=== PATIENT | male | born 1980 | race Caucasian/White ===

== ENCOUNTER 2020-11-25 14:04 | Emergency (ER) | payer OTHER ==
[2020-11-25] MEDS ORDERED: ZOLOFT50 MG PO (14:22)
== END 2020-11-25 14:41 | disposition home or self-care (01) ==
LOC: ER1 14:04
DX: F32.9 Major depressive disorder, single episode, unspecified (principal); Z76.0 Encounter for issue of repeat prescription; F17.210 Nicotine dependence, cigarettes, uncomplicated
CPT/HCPCS: 99281

== ENCOUNTER 2021-02-20 21:12 | Emergency (ER) | payer OTHER ==
[~2021-02-20 21:12] MED LIST: ZOLOFT50 MG PO
[2021-02-20] MEDS ORDERED: BACTRIM 400-801 EACH PO ×2 (21:45→21:53)
[2021-02-20] MEDS ORDERED: BACTROBAN OINT22 GM TOP (21:53)
== END 2021-02-20 22:00 | disposition home or self-care (01) ==
LOC: ER1 21:12
DX: L73.9 Follicular disorder, unspecified (principal)
CPT/HCPCS: 99283